=== PATIENT | male | born 1970 | race Caucasian/White ===

== ENCOUNTER 2019-06-02 16:05 | Emergency (ER) | payer SELFPAY ==
[~2019-06-02] VITALS: Ht 190.5 cm; Wt 90.7 kg
[2019-06-02 16:15] VITALS: BP 158/97
[2019-06-02] MEDS ORDERED: CEPH-264 PO (16:40)
--- NOTE | 2019-06-02 16:40 | PHYS DOC ---
Adult General Chief Complaint Chief Complaint: ABSCESS HPI HPI Patient is a 49 year old male who presents with right outer arm abscesses. Patient has 4 different rounded areas that range from dime-sized to 3mm in size, non-draining, raised, areas. Patient states her last 2 weeks they have been there but he will had been moving boxes around in his basement and thinks he may have gotten bitten. Afebrile. Patient states they're painful and do not itch. There is no associated cellulitis. Review of Systems Review of Systems Integument: abscess to right outer arm. Denies rash or skin lesions [] All other systems were reviewed and found to be within normal limits, except as documented in this note. Allergies Allergies Allergies Coded Allergies Type Severity Reaction Last Updated Verified acetaminophen Allergy Unknown 06/02/19 Yes hydrocodone Allergy Unknown 06/02/19 Yes Physical Exam Physical Exam Constitutional: Well developed, well nourished, no acute distress, non-toxic appearance. [] HENT: Normocephalic, atraumatic, bilateral external ears normal, oropharynx moist, no oral exudates, nose normal. [] Eyes: PERRLA, EOMI, conjunctiva normal, no discharge. [] Neck: Normal range of motion, no tenderness, supple, no stridor. [] Cardiovascular:Heart rate regular rhythm, no murmur [] Lungs & Thorax: Bilateral breath sounds clear to auscultation [] Abdomen: Bowel sounds normal, soft, no tenderness, no masses, no pulsatile masses. [] Skin: 4 small abscess, hard, nondraining, raised on left lateral arm. Warm, dry, no erythema, no rash. [] Back: No tenderness, no CVA tenderness. [] Extremities: No tenderness, no cyanosis, no clubbing, ROM intact, no edema. [] Neurologic: Alert and oriented X 3, normal motor function, normal sensory function, no focal deficits noted. [] Psychologic: Affect normal, judgement normal, mood normal. [] EKG EKG [] Radiology/Procedures Radiology/Procedures [] Course & Med Decision Making Course & Med Decision Making Patient is a 49 year old male who presents with right outer arm abscesses. Patient has 4 different rounded areas that range from dime-sized to 3mm in size, non-draining, raised, areas. Patient states her last 2 weeks they have been there but he will had been moving boxes around in his basement and thinks he may have gotten bitten. Afebrile. Patient states they're painful and do not itch. There is no associated cellulitis. Alert and oriented. There is no swelling of the extremity. Patient has normal strength in the extremity. Areas are hard and nonfluctuant. There nondraining and looked to be scabbed over. Patient denies IV drug use. No heat to the skin. Patient be treated with Keflex and is told to follow-up in 48 hours if not getting better. Dragon Disclaimer Dragon Disclaimer This electronic medical record was generated, in whole or in part, using a voice recognition dictation system. Departure Departure Impression: Primary Impression: Abscess Disposition: 01 HOME, SELF-CARE Condition: STABLE Referrals: UNKNOWN PCP NAME (PCP) Patient Instructions: Abscess Additional Instructions: Follow up in with primary care if not getting better. Scripts Cephalexin (KEFLEX) 500 Mg Capsule 1 CAP PO TID for 10 Days, #30 CAP 0 Refills Prov: IVANA BARRERA APRN 06/02/19 IVANA BARRERA APRN Jun 02, 2019 16:40
== END 2019-06-02 16:55 | disposition home or self-care (01) ==
LOC: ER 16:05
DX: L02.413 Cutaneous abscess of right upper limb (principal); Z88.5 Allergy status to narcotic agent; Z88.6 Allergy status to analgesic agent
CPT/HCPCS: 99283

== ENCOUNTER 2020-06-24 13:38 | Emergency (ER) | payer SELFPAY ==
[~2020-06-24] VITALS: Ht 190.5 cm; Wt 90.9 kg
[~2020-06-24 13:38] MED LIST: CEPH-264 PO
--- NOTE | 2020-06-24 14:22 | PHYS DOC ---
Past Medical History Past Medical History: Hypertension Past Surgical History: Other Additional Past Surgical Histo: L. KNEE Smoking Status: Current Every Day Smoker Alcohol Use: None Drug Use: Marijuana General Adult EDM: Chief Complaint: HEADACHE HPI: HPI: Patient is a 50 year old male who presents with a request to have his lisinopril prescription. Patient states he recently was released from long term and does not have a prescription for lisinopril 20 mg daily. Patient states that he had a headache prior to arrival and took his blood pressure reporting it was 210/105. Patient states that he took 3 ibuprofens before coming in and states his headache has resolved and has no more pain. Patient states the reason for seeing the emergency department today is to obtain a prescription for his blood pressure medications. Patient denies any fever, chills, cough, congestion, chest pains, shortness of breath, abdominal pains, problems urinating, or back pain. Patient denies homicidal or suicidal ideations. Patient denies any new anxieties or depressions. Patient states that he is not concerned about his headache and does not wish to be evaluated for headache. Patient states that he gets a frontal headache when his blood pressure is elevated and it goes away with either taken [id number] analgesics and/or taken his blood pressure medicines. Review of Systems: Review of Systems: Constitutional: Denies fever or chills. Eyes: Denies change in visual acuity. HENT: Denies nasal congestion or sore throat. Respiratory: Denies cough or shortness of breath. Cardiovascular: Denies chest pain or edema. GI: Denies abdominal pain, nausea, vomiting, bloody stools or diarrhea. : Denies dysuria. Musculoskeletal: Denies back pain or joint pain. Integument: Denies rash. Neurologic: Denies headache, focal weakness or sensory changes. Endocrine: Denies polyuria or polydipsia. Lymphatic: Denies swollen glands. Psychiatric: Denies depression or anxiety. Denies homicidal or suicidal ideations. Heart Score: Risk Factors: Risk Factors: DM, Current or recent (<one month) smoker, HTN, HLP, family history of CAD, obesity. Risk Scores: Score 0 - 3: 2.5% MACE over next 6 weeks - Discharge Home Score 4 - 6: 20.3% MACE over next 6 weeks - Admit for Clinical Observation Score 7 - 10: 72.7% MACE over next 6 weeks - Early Invasive Strategies Family History: Family History: Patient states he has a family history of cancers and hypertension. Allergies: Allergies: Allergies Coded Allergies Type Severity Reaction Last Updated Verified acetaminophen Allergy Unknown 06/02/19 Yes hydrocodone Allergy Unknown 06/02/19 Yes Physical Exam: PE: Constitutional: Well developed, well nourished, no acute distress, non-toxic appearance. HENT: Normocephalic, atraumatic, bilateral external ears normal, oropharynx moist, no oral exudates, nose normal. Eyes: PERRLA, EOMI, conjunctiva normal, no discharge. Neck: Normal range of motion, no tenderness, supple, no stridor. Cardiovascular:Heart rate regular rhythm, no murmur Lungs & Thorax: Bilateral breath sounds clear to auscultation Abdomen: Bowel sounds normal, soft, no tenderness, no masses, no pulsatile masses. Skin: Warm, dry, no erythema, no rash. Back: No tenderness, no CVA tenderness. Extremities: No tenderness, no cyanosis, no clubbing, ROM intact, no edema. Neurologic: Alert and oriented X 3, normal motor function, normal sensory function, no focal deficits noted. Psychologic: Affect normal, judgement normal, mood normal. Current Patient Data: Vital Signs: Vital Signs Date Time Temp Pulse Resp B/P (MAP) Pulse Ox O2 Delivery O2 Flow Rate FiO2 06/24/20 13:52 98.6 86 20 196/93 (127) 98 Room Air 98.6 EKG: EKG: [] Radiology/Procedures: Radiology/Procedures: [] Course & Med Decision Making: Course & Med Decision Making Pertinent Labs and Imaging studies reviewed. (See chart for details) 50-year-old patient presents emergency department requesting a refill for l isinopril. Patient states he had a headache earlier which he took ibuprofen for and his headache has resolved. Patient states that he usually develops a headache when his blood pressure is high, today when he noticed that he had a headache he took his blood pressure and it was elevated. Currently patient denies any headaches pains or anxieties. Patient is not in hypertensive em ergency and/or crisis at this time. Patient was given a 20 mg p.o. lisinopril in the emergency department for hypertension. Upon reexamination patient's blood pressure had decreased to 167/80 of the upper right extremity per noninvasive blood pressure machine. Patient continued to deny any aches or pains. Patient was in no apparent distress. Patient was given a prescription for 20 mg p.o. lisinopril, patient is to follow-up with his physician for further blood pressure control and management. Patient gave verbal understanding of follow-up instructions, prescription instructions, return to ER concerns. Patient had no further questions or concerns, patient discharged home without incident. Dragon Disclaimer: Dragon Disclaimer: This electronic medical record was generated, in whole or in part, using a voice recognition dictation system. Departure Departure Impression: Primary Impression: Hypertension Qualified Codes: I10 - Essential (primary) hypertension Additional Impression: Medication refill Disposition: 01 DC HOME SELF CARE/HOMELESS Condition: IMPROVED Referrals: UNKNOWN PCP NAME (PCP) Patient Instructions: Hypertension Additional Instructions: Take medications as prescribed, your lisinopril 20 mg twice a day has been refilled here in the emergency department, please follow-up with your doctor soon to manage your hypertension. Return to the emergency department for worsening symptoms or other concerns. Scripts Lisinopril (LISINOPRIL) 20 Mg Tablet 1 TAB PO DAILY for HYPERTENSION, #30 TAB 1 Refill Prov: CASSIE AGUIRRE APRN 06/24/20 CASSIE AGUIRRE APRN Jun 24, 2020 14:22
[2020-06-24 14:23] VITALS: BP 167/77
[2020-06-24] MEDS ORDERED: LISINOPRIL 10 MG TABLET PO ONE (14:30)
[2020-06-24] MEDS ORDERED: LISI-334 PO (14:44)
== END 2020-06-24 14:53 | disposition home or self-care (01) ==
LOC: ER 13:38
DX: I10 Essential (primary) hypertension (principal); Z76.0 Encounter for issue of repeat prescription; R51.9 Headache, unspecified; F17.200 Nicotine dependence, unspecified, uncomplicated; Z88.5 Allergy status to narcotic agent; Z88.6 Allergy status to analgesic agent
CPT/HCPCS: 99281; 99283

== ENCOUNTER 2020-06-25 10:13 | Emergency (ER) | payer SELFPAY ==
[~2020-06-25] VITALS: Ht 190.5 cm; Wt 97.7 kg
[~2020-06-25 10:13] MED LIST changes: +LISI-334 PO
[2020-06-25] MEDS ORDERED: LISINOPRIL 10 MG TABLET PO ONE (10:45)
[2020-06-25 11:14] VITALS: BP 175/97
--- NOTE | 2020-06-25 12:13 | PHYS DOC ---
Past Medical History Past Medical History: Hypertension Past Surgical History: Other Additional Past Surgical Histo: L. KNEE Smoking Status: Current Every Day Smoker Alcohol Use: None Drug Use: Marijuana General Adult EDM: Chief Complaint: MEDICATION REFILL HPI: HPI: Patient is a 50 year old [f__sex] who presents with [] Review of Systems: Review of Systems: Constitutional: Denies fever or chills. [] Eyes: Denies change in visual acuity. [] HENT: Denies nasal congestion or sore throat. [] Respiratory: Denies cough or shortness of breath. [] Cardiovascular: Denies chest pain or edema. [] GI: Denies abdominal pain, nausea, vomiting, bloody stools or diarrhea. [] : Denies dysuria. [] Musculoskeletal: Denies back pain or joint pain. [] Integument: Denies rash. [] Neurologic: Denies headache, focal weakness or sensory changes. [] Endocrine: Denies polyuria or polydipsia. [] Lymphatic: Denies swollen glands. [] Psychiatric: Denies depression or anxiety. [] Heart Score: Risk Factors: Risk Factors: DM, Current or recent (<one month) smoker, HTN, HLP, family history of CAD, obesity. Risk Scores: Score 0 - 3: 2.5% MACE over next 6 weeks - Discharge Home Score 4 - 6: 20.3% MACE over next 6 weeks - Admit for Clinical Observation Score 7 - 10: 72.7% MACE over next 6 weeks - Early Invasive Strategies Current Medications: Current Medications Medications (Trade) Dose Ordered Sig/Herminia Start Time Stop Time Status Last Admin Dose Admin Lisinopril (Prinivil) 20 mg 1X ONCE 06/25/20 10:45 06/25/20 10:46 DC 06/25/20 11:14 20 MG Allergies: Allergies: Allergies Coded Allergies Type Severity Reaction Last Updated Verified acetaminophen Allergy Unknown 06/02/19 Yes hydrocodone Allergy Unknown 06/02/19 Yes Physical Exam: PE: Constitutional: Well developed, well nourished, no acute distress, non-toxic appearance. [] HENT: Normocephalic, atraumatic, bilateral external ears normal, oropharynx moist, no oral exudates, nose normal. [] Eyes: PERRLA, EOMI, conjunctiva normal, no discharge. [] Neck: Normal range of motion, no tenderness, supple, no stridor. [] Cardiovascular:Heart rate regular rhythm, no murmur [] Lungs & Thorax: Bilateral breath sounds clear to auscultation [] Abdomen: Bowel sounds normal, soft, no tenderness, no masses, no pulsatile masses. [] Skin: Warm, dry, no erythema, no rash. [] Back: No tenderness, no CVA tenderness. [] Extremities: No tenderness, no cyanosis, no clubbing, ROM intact, no edema. [] Neurologic: Alert and oriented X 3, normal motor function, normal sensory function, no focal deficits noted. [] Psychologic: Affect normal, judgement normal, mood normal. [] Current Patient Data: Vital Signs: Vital Signs Date Time Temp Pulse Resp B/P (MAP) Pulse Ox O2 Delivery O2 Flow Rate FiO2 06/25/20 11:14 83 175/97 06/25/20 10:30 98.2 18 97 Room Air 98.2 EKG: EKG: [] Radiology/Procedures: Radiology/Procedures: [] Course & Med Decision Making: Course & Med Decision Making Pertinent Labs and Imaging studies reviewed. (See chart for details) Strict ED return precautions were given for []. Encouraged urgent outpatient follow-up with PMD and [specialist]. Life-threatening processes were considered but are low suspicion at this time, given history and physical exam. Pt was educated on all prescription medications and adverse effects. All patient's questions were answered and pt was stable at time of discharge. I spoken with the patient and her caregivers. I explained the patient's condition, diagnoses and treatment plan based on the information available to me at this time. I have answered the patient and her caregiver's questions and addressed any concerns. The patient and her caregivers have a good unde rstanding of patient's diagnosis, condition and treatment plan as can be expected at this point. Vital signs have been stable. Patient's condition is stable and appropriate for discharge from the emergency department. Patient will pursue further outpatient evaluation with primary care physician or other designated or consulting physician as outlined in the discharge instructions. The patient and/or caregivers are agreeable to this plan of care and follow-up instructions have been explained in detail. The patient and/or caregivers have received these instructions in written form and have expressed an understanding of the discharge instructions. The patient and/or caregivers are aware that any significant change of condition or worsening of symptoms daniela uld prompt immediate return to this or the closest emergency department or call to 911. Alexander Disclaimer: Alexander Disclaimer: This electronic medical record was generated, in whole or in part, using a voice recognition dictation system. Departure Departure Impression: Primary Impression: Uncontrolled hypertension Disposition: 01 DC HOME SELF CARE/HOMELESS Condition: STABLE Referrals: NO PCP (PCP) FOLLOW UP WITH FAMILY MEDICINE: Family Medicine Address: [address] [place] [address] [place], [facility] [address] [place] [address] Patient Instructions: Hypertension Additional Instructions: EMERGENCY DEPARTMENT GENERAL DISCHARGE INSTRUCTIONS Thank you for coming to [facility] Emergency Department (ED) today and trusting us with you care. We trust that you had a positive experience in our Emergency Department. If you wish to speak to the department management, you may call the Director at [phone]. YOUR FOLLOW UP INSTRUCTIONS ARE FOLLOWS: 1. Do you have a private Doctor? If you do not have a private doctor, please ask for a resource list of physicians or clinics that may be able to assist you with follow up care. 2. The Emergency Physicain has interpreted your x-rays. The X-Ray specialist will also review them. If there is a change in the findings, you will be notified in 48 hours when at all possible. 3. A lab test or culture has been done, your results will be reviewed and you will be notified if you need a change in treatment. ADDITIONAL INSTRUCTIONS AND INFORMATION: 1. Your care today has been supervised by a physician who is specially trained in emergency care. Many problems require more than one evaluation for a complete diagnosis and treatment. We recommend that you schedule your follow up appointment as recommended to ensure complete treatment of you illness or injury. If you are unable to obtain follow up care and continue to have a problem, or if your condition worsens, we recommend that you return to the ED. 2. We are not able to safely determine your condition over the phone nor are we able to give sound medical advice over the phone. For these safety reasons, if you call for medical advice we will ask you to come to the ED for further evaluation. 3. If you have any questions regarding these discharge instructions please call the ED at [phone]. SAFETY INFORMATION: In the interest of safety, wellness, and injury prevention; we encourage you to wear your sealbelt, if you smoke; quite smoking, and we encourage family to use a protective helmet for bicycling and other sporting events that present an increased risk for head injury. IF YOUR SYMPTOMS WORSEN OR NEW SYMPTOMS DEVELOP, OR YOU HAVE CONCERNS ABOUT YOUR CONDITION; OR IF YOUR CONDITION WORSENS WHILE YOU ARE WAITING FOR YOUR FOLLOW UP APPOINTMENT; EITHER CONTACT YOUR PRIMARY CARE DOCTOR, THE PHYSICIAN WHOSE NAME AND NUMBER YOU WERE GIVEN, OR RETURN TO THE ED IMMEDIATELY. [facility] DO Jun 25, 2020 12:13
== END 2020-06-25 12:18 | disposition home or self-care (01) ==
LOC: ER 10:13
DX: I10 Essential (primary) hypertension (principal); F17.200 Nicotine dependence, unspecified, uncomplicated; F12.90 Cannabis use, unspecified, uncomplicated; Z98.890 Other specified postprocedural states; Z88.5 Allergy status to narcotic agent; Z88.8 Allergy status to other drugs, medicaments and biological substances
CPT/HCPCS: 99283

== ENCOUNTER 2021-05-01 21:34 | Emergency (ER) | payer SELFPAY ==
[~2021-05-01 21:34] MED LIST changes: -LISI-334 PO; +LISI20TA18 PO
== END 2021-05-01 23:20 | disposition left against medical advice (07) ==
LOC: ER 21:34
DX: R22.30 Localized swelling, mass and lump, unspecified upper limb (principal); Z53.21 Procedure and treatment not carried out due to patient leaving prior to being seen by health care provider